=== PATIENT | female | born 1990 | race Caucasian/White ===

== ENCOUNTER → 2018-08-17 | Outpatient (CLI) | payer MEDICAID ==
[~2018-08-17] MED LIST: PERCOCET 325 MG1 TA2 PO; PRENATAL1 TA1 PO
== END ==
LOC: SUN.DIA 12:40
DX: O24.419 Gestational diabetes mellitus in pregnancy, unspecified control (principal); Z68.35 Body mass index [BMI] 35.0-35.9, adult
CPT/HCPCS: G0108

== ENCOUNTER → 2018-08-31 | Outpatient (CLI) | payer MEDICAID | LOC: DIA.ED 08-23 14:59 | DX: O24.419 Gestational diabetes mellitus in pregnancy, unspecified control (principal); Z3A.35 35 weeks gestation of pregnancy | CPT/HCPCS: G0108 ==

== ENCOUNTER → 2018-09-21 | Outpatient (CLI) | payer MEDICAID | LOC: DIA.ED 11:39 | DX: O24.419 Gestational diabetes mellitus in pregnancy, unspecified control (principal); Z3A.38 38 weeks gestation of pregnancy | CPT/HCPCS: G0108 ==

== ENCOUNTER 2018-10-06 07:10 | Inpatient (IN) | payer BC, MEDICAID ==
[~2018-10-06] VITALS: Ht 157.5 cm; Wt 75.0 kg
[2018-10-06] VITALS (41 sets, daily range): BP systolic 97–133; BP diastolic 51–79; PULSE 04–108; TEMP 97.8–98.7
--- NOTE | 2018-10-06 07:15 | NUR ---
Patient ambulatory onto unit with at side for scheduled induction of labor. Patient oriented to room, changed into gown, plan of care discussed. Patient reports good movement and irregular cramping/contractions, denies vaginal bleeding or leaking of fluid. EFMs on, VS taken. IV started to left hand at 0725, LR infusing per orders. BS 85. Consents signed. Admission assessment completed. to bedside at 0740. Vertex position verified. SVE 2/50/-3, AROM attempted but no fluid return. Will continue to monitor.
[2018-10-06 07:43] LABS: HEMOGLOBIN 12.8 g/dl (12.5-16.0); MEAN CELL VOLUME 98 fl (80.0-100.0); MEAN CORPUSCULAR HEMOGLOBIN 34 pg (27.0-31.0); MEAN CORPUSCULAR HGB CONC 35 g/dl (33.0-37.0); PLATELET COUNT 145 K/mm3 (130-400); RED BLOOD COUNT 3.76 M/mm3 (4.10-5.30)
[2018-10-06 07:48] LABS: HEMATOCRIT 36.9 % (37.0-47.0)
[2018-10-06 08:20] LABS: EOSINOPHIL 1 % (0-4); LYMPHOCYTE 14 % (20.0-51.0); NEUTROPHILS 81 % (42.0-75.2); PLATELET ESTIMATE NORMAL (NORMAL)
--- NOTE | 2018-10-06 10:00 | NUR ---
Report to Boni RN to assume care of patient at this time.
[2018-10-07 06:34] LABS: HEMATOCRIT 34.9 % (37.0-47.0); HEMOGLOBIN 12.1 g/dl (12.5-16.0)
[2018-10-07 07:55] VITALS: BP 104/61; PULSE 80; TEMP 97.4
--- NOTE | 2018-10-07 09:11 | NUR ---
Initial visit; Patient thanked Product Safety Technical Assistant for offering congratulations for the of her daughter and for welcoming her to [facility].
[2018-10-07 16:40] VITALS: BP 103/68; PULSE 81; TEMP 97.5
[2018-10-07 20:45] VITALS: BP 112/65; PULSE 87; TEMP 98
[2018-10-08 09:00] VITALS: BP 111/63; PULSE 68; TEMP 97.7
== END 2018-10-08 11:00 | disposition home or self-care (01) | DRG 807 ==
LOC: LDR 07:10 → OB 07:10
PROVIDERS: ADMIT Obstetrics & Gynecology
PROC: 10E0XZZ Delivery of Products of Conception, External Approach (ICD-10-PCS; principal; 2018-10-06)
PROC: 10907ZC Drainage of Amniotic Fluid, Therapeutic from Products of Conception, Via Natural or Artificial Opening (ICD-10-PCS; 2018-10-06)
PROC: 3E033VJ Introduction of Other Hormone into Peripheral Vein, Percutaneous Approach (ICD-10-PCS; 2018-10-06)
DX: O24.420 Gestational diabetes mellitus in childbirth, diet controlled (principal); Z37.0 Single live birth; Z3A.39 39 weeks gestation of pregnancy
CPT/HCPCS: J2590; J2795; J7120

== ENCOUNTER 2022-04-03 11:16 | Inpatient (IN) | payer MEDICAID ==
[~2022-04-03] VITALS: Ht 160 cm; Wt 77.7 kg
[2022-04-06] VITALS (35 sets, daily range): BP systolic 100–141; BP diastolic 50–82; PULSE 79–112; TEMP 97.7–98.9
--- NOTE | 2022-04-06 06:40 | NUR ---
PT AMBULATORY TO UNIT FOR SCHEDULED IOL, DX.GDM. ORIENTED TO LABOR ROOM. EDUCATED ON POC. PLACED ON EFM/TOCO. CATEGORY 1 EFM TRACING, NO CONTRACTIONS UPON ARRIVAL. PT DENIES CONTRACTIONS, REPORTS POSITIVE MOVEMENT, AND DENIES LOF. WILL CONTINUE WITH POC.
--- NOTE | 2022-04-06 07:20 | NUR ---
AT BEDSIDE. ULTRASOUND CONFIRMS VERTEX PRESENTATION. PT AGREEABLE TO AROM AROUND NOON. PT EXPERIENCING HIGH ANXIETY ABOUT THIS LABOR AND DELIVERY, SO REQUESTING TO DELAY AROM. NO FURTHER ORDERS AT THIS TIME.
[2022-04-06 07:21] LABS: BASO % 0.4 % (0.0-2.0); EOS # 0.1 K/mm3 (0.0-0.7); EOS % 0.9 % (0.0-4.0); GRAN # 5.3 K/mm3 (1.4-6.5); GRAN % 68.2 % (42.2-75.2); HEMATOCRIT 37.7 % (37.0-47.0); LYMPH # 1.9 K/mm3 (1.2-3.4); LYMPH % 23.7 % (20.0-51.0); MEAN CELL VOLUME 96 fl (80.0-100.0); MEAN CORPUSCULAR HEMOGLOBIN 33 pg (27-31); MEAN CORPUSCULAR HGB CONC 35 g/dl (33.0-37.0); MEAN PLATELET VOLUME 10.4 fl (7.4-10.4); MONO # 0.5 K/mm3 (0.1-0.6); MONO % 5.9 % (1.7-9.3); PLATELET COUNT 178 K/mm3 (130-400); RED BLOOD COUNT 3.94 M/mm3 (4.10-5.30); REDCELL DISTRIBUTION WIDTH-CV 12.1 % (11.5-14.5)
--- NOTE | 2022-04-06 12:37 | NUR ---
AT BEDSIDE. SVE /-2. AROM WITH CLEAR FLUID @ 1237. PT TOLERATED PROCEDURE WELL. CATEGORY 1 EFM TRACING PRIOR TO AND FOLLOWING AROM. WILL CONTINUE WITH POC.
--- NOTE | 2022-04-06 13:30 | NUR ---
PT TO SITTING POSITION ON EDGE OF BED FOR EPIDURAL PLACEMENT. CATEGORY 1 EFM TRACING. MATERNAL VITAL SIGNS STABLE. 1330: SINGLE SHOT PER CAROL MURRAY. PT TOLERATED PROCEDURE WELL.
--- NOTE | 2022-04-06 14:30 | NUR ---
1430: PT COMPLETE/0 STATION. ON UNIT, NOTIFIED OF PENDING DELIVERY. ROOM PREPARED AND ALL STAFF NOTIFIED. PT REPORTING URGE TO PUSH, AT BEDSIDE. 1436: OF VIABLE FEMALE INFANT AT THIS TIME. PLACED ON MATERNAL ABODMEN, CORD CLAMPED X2 AND CUT BY FOB. STRONG CRY NOTED. CARE OF INFANT ASSUMED BY JAZMÍN WIGGINS RN. 1440: OF PLACENTA AT THIS TIME. PITOCIN BOLUS INFUSING PER PROTOCOL. PTS PERINEUM REMAINS INTACT. LOCHIA SCANT, FUNDUS FIRM AT UMBILICUS. MATERNAL VITAL STABLE. WILL CONTINUE WITH PLAN OF CARE.
[2022-04-07 01:30] VITALS: BP 112/68; PULSE 78; TEMP 98.1
[2022-04-07 07:30] VITALS: BP 120/79; PULSE 78; TEMP 97.7
--- NOTE | 2022-04-07 09:15 | NUR ---
Initial visit; Parents thanked Acid Polymerization Operator for offering congratulations and God's blessings for the of their daughter. Acid Polymerization Operator thanked family for choosing [facility].
--- NOTE | 2022-04-07 13:21 | NUR ---
THIS SUPERVISOR COMPUTER OPERATIONS ASSUMES CARE OF PATIENT FROM ELLIOTT NEFF RN.
== END 2022-04-07 16:07 | disposition home or self-care (01) | DRG 807 ==
LOC: OB 04-06 06:29 → LDR 04-06 06:29 → OB 04-06 11:15
PROVIDERS: ADMIT Obstetrics & Gynecology
PROC: 10E0XZZ Delivery of Products of Conception, External Approach (ICD-10-PCS; principal; 2022-04-06)
PROC: 10907ZC Drainage of Amniotic Fluid, Therapeutic from Products of Conception, Via Natural or Artificial Opening (ICD-10-PCS; 2022-04-06)
PROC: 3E033VJ Introduction of Other Hormone into Peripheral Vein, Percutaneous Approach (ICD-10-PCS; 2022-04-06)
DX: O24.420 Gestational diabetes mellitus in childbirth, diet controlled (principal); Z37.0 Single live birth; Z3A.39 39 weeks gestation of pregnancy
CPT/HCPCS: J2590; J7120